=== PATIENT | male | born 1955 | race Two or more races ===

== ENCOUNTER 2018-01-20 05:51 | Inpatient (IN) | payer OTHER ==
[~2018-01-20] VITALS: Ht 185.4 cm; Wt 100.9 kg
[2018-01-20] VITALS (9 sets, daily range): BP systolic 151–175; BP diastolic 78–95
[~2018-01-20 05:51] MED LIST: ANTIFUNGAL CREAM TOPIC; MELATONIN5 M5 ORAL; MOVE FREE JOIN1 EACH PO; MULTIVITAMINS1 EAC2 ORAL; VYTORIN 10-401 EACH ORAL; [UNRECOGNIZED DRUG - OTHER] PO
[2018-01-20] MEDS ORDERED: Bupivacaine 0.5% Inj 30 ml vial INJ ONE ×2 (06:49→09:12)
[2018-01-20] MEDS ORDERED: Thrombin 5000 units spray kit TOPIC ONE ×5 (06:50→12:24)
[2018-01-20] MEDS ORDERED: Vancomycin 1gm inj IVPB ONE ×2 (06:50→12:25)
[2018-01-20] MEDS ORDERED: Gelfoam Size TOPIC ONE (06:51)
[2018-01-20] MEDS ORDERED: Bacitracin 50000 Units Vial ONE (06:51)
[2018-01-20] MEDS ORDERED: Thrombin 5000 units TOPIC ONE ×3 (06:51→09:12)
[2018-01-20] MEDS ORDERED: ceFAZolin sod 2 GM in D5W 110 ML IVPB ONE (07:00)
[2018-01-20] MEDS ORDERED: Midazolam 2mg/2ml Inj ONE (07:06)
[2018-01-20] MEDS ORDERED: fentaNYL 100 mcg/2 mL IV ONE ×2 (07:06→12:33)
[2018-01-20] MEDS ORDERED: Propofol 200mg/20ml IV ONE (07:07)
[2018-01-20] MEDS ORDERED: Sodium Chloride 10ml vial INJ ONE (07:07)
[2018-01-20] MEDS ORDERED: Lidocaine 1% MPF 10mg/ml 5ml ONE (07:07)
[2018-01-20] MEDS ORDERED: Zemuron 50mg/5ml Inj IV ONE (07:31)
[2018-01-20] MEDS ORDERED: Gelfoam Absorbable 1gm powder pkt TOPIC ONE ×5 (07:50→12:24)
[2018-01-20] MEDS ORDERED: Sterile Water Irrig 1000ml IRRIG ONE (08:00)
[2018-01-20] MEDS ORDERED: NS Irrig 1000ml ONE (08:00)
[2018-01-20] MEDS ORDERED: LR 1000ml ONE (08:00)
[2018-01-20] MEDS ORDERED: Bacitracin 50000 Units Vial IRRIG ONE ×2 (08:05→09:12)
[2018-01-20] MEDS ORDERED: LR 1000ml 1,000 ML IVLG SCH (08:05)
--- NOTE | 2018-01-20 08:12 | Anethesia Preoperative Eval ---
Anesthesia Pre-op PMH/ROS General Date of Evaluation: Jan 20, 2018 Time of Evaluation: 07:25 Anesthesiologist: Lashanda ASA Score: ASA 2 Mallampati Score Class I : Soft palate, uvula, fauces, pillars visible Class II: Soft palate, uvula, fauces visible Class III: Soft palate, base of uvula visible Class IV: Only hard plate visible Mallampati Classification: Class II Surgeon: Rere Diagnosis: Disc degeneration Surgical Procedure: Lumbar decompression Family History: no anesthesia problems Allergies: Coded Allergies: No Known Allergies (Unverified , 01/20/14) Medications: see eMAR Past Medical History Cardiovascular: Denies: HTN, CAD, [place], valve dz, arrhythmia, other Pulmonary: Reports: BRIAN; Denies: asthma, COPD, other Gastrointestinal/Genitourinary: Denies: GERD, CRI, ESRD, other Neurologic/Psychiatric: Denies: dementia, CVA, depression/anxiety, TIA, other Endocrine: Denies: DM, hypothyroidism, steroids, other Other: obesity PMH Narrative: BRIAN, moderate obesity PSxH Narrative: Cervical fusion Anesthesia Pre-op Phys. Exam Physician Exam Last Vital Signs Date Time Temp Pulse Resp B/P (MAP) Pulse Ox O2 Delivery O2 Flow Rate FiO2 01/20/18 06:51 Room Air 01/20/18 06:38 98.2 79 18 175/95 (121) 97 98.2 Constitutional: NAD Neurologic: CN 2-12 intact Cardiovascular: RRR, no M/R/G Respiratory: CTA Gastrointestinal: S/NT/ND Airway Exam Mallampati Score: Class II MO: full ROM: full Teeth: intact Anesthesia Pre-op A/P Labs WNL Studies Pre-op Studies: EKG - NSR, CXR - NAD Risk Assessment & Plan Assessment: 62 yo male with h/o BRIAN and moderate obesity here for lumbar multilevel decompression Plan: GETA, SedLine Status Change Before Surgery: No Pre-Antibiotics Drug: Ancef Given Within 1 Hr of Incision: Yes Time Given: 08:45 Leonidas Pyle MD Jan 20, 2018 08:12
--- NOTE | 2018-01-20 08:13 | Immediate Post-Op Evaluation ---
Leonidas Pyle MD 01/20/18 0813: Galindo Marcos MD 01/20/18 1305: Immediate Post-Op Evalulation Immediate Post-Op Evalulation Procedure: Lumbar Decompression Date of Evaluation: Jan 20, 2018 Time of Evaluation: 13:14 IV Fluids: 2000 LR Blood Products: 0 Estimated Blood Loss: 400 Urinary Output: 200 Blood Pressure Systolic: 157 Blood Pressure Diastolic: 86 Pulse Rate: 67 Respiratory Rate: 16 O2 Sat by Pulse Oximetry: 99 Temperature (Fahrenheit): 97.9 Pain Score (1-10): 3 Nausea: No Vomiting: No Complications 0 Patient Status: awake, reacts, patent, extubated, none Hydration Status: adequate Dru Grams Ancef IV Given Within 1 Hr of Incision: Yes Time Given: 09:21 Leonidas Pyle MD Jan 20, 2018 08:13 Galindo Marcos MD Jan 20, 2018 13:05
[2018-01-20] MEDS ORDERED: Hydromorphone 0.5mg/0.5ml inj IVP PRN (08:15)
[2018-01-20] MEDS ORDERED: DiphenhydrAMINE 50mg/ml Inj IVP PRN (08:15)
[2018-01-20] MEDS ORDERED: LORazepam Inj 2mg/ml 1ml IV PRN (08:15)
[2018-01-20] MEDS ORDERED: Meperidine 50mg/ml Inj(FOR RIGORS ONLY) IM PRN (08:15)
--- NOTE | 2018-01-20 08:39 | Pre-Procedure Note/Attestation ---
Pre-Procedure Note/Attestation Complete Prior to Procedure Procedure Narrative: L3-S1 laminectomy/foraminotomy Indications for Procedure Pre-Operative Diagnosis: L3-S1 Stenosis with radiculopathy Attestation I attest that I discussed the nature of the procedure; its benefits; risks and complications; and alternatives (and the risks and benefits of such alternatives ), prior to the procedure, with the patient (or the patient's legal mortician supplies sales representative). I attest that, if there was a reasonable possibility of needing a blood transfusion, the patient (or the patient's legal mortician supplies sales representative) was given the [facility] standardized written summary, pursuant to the Leonidas Ana Blood Safety Act ([place] Health and Safety Code # 1645, as amended). I attest that I re-evaluated the patient just prior to the surgery and that there has been no change in the patient's H&P, except as documented below: Andre Jernigan MD Jan 20, 2018 08:39
[2018-01-20] MEDS ORDERED: ePHEDrine 50mg/ml Inj ONE (09:23)
[2018-01-20] MEDS ORDERED: Acetaminophen (Non formulary) 100 ML IV ONE (12:15)
[2018-01-20] MEDS ORDERED: Milk of Magnesia 30ml Ud ORAL PRN (12:45)
--- NOTE | 2018-01-20 12:50 | Brief Operative Note ---
Immediate Post Operative Note Operative Note Pre-op Diagnosis: L3-S1 Stenosis with radiculopathy Procedure: l3-s1 laminectomy, r l45 neurolysis and resection of cyst Post-op Diagnosis: same as pre-op Findings: consistent w/pre-op dx studies Surgeon: milagro Anesthesiologist: jesús Anesthesia: general Specimen: none Complications: none Condition: stable Fluids: 2L Estimated Blood Loss: volume - 400 Drains: hemovac Implant(s) used?: No Andre Jernigan MD Jan 20, 2018 12:50
[2018-01-20] MEDS ORDERED: D5 1/2NS 1,000 ML IV SCH (13:00)
[2018-01-20] MEDS ORDERED: Metoclopramide 10mg/2ml Inj IVP PRN ×2 (14:23→16:52)
--- NOTE | 2018-01-20 14:34 | Diagnostic Imaging Report ---
Indication: Right lower extremity greater than left lower extremity pain, intraoperative imaging Technique: Intraoperative images Comparison: none Findings: Initial image demonstrates surgical tool projected posterior to what is presumably the L4 vertebral body, and a second projected posterior to what is presumably the L5-S1 disc. Impression: Intraoperative imaging, as described
--- NOTE | 2018-01-20 15:27 | History and Physical ---
History of Present Illness General Date patient seen: Jan 20, 2018 Present Illness HPI 62 year old male with hx of mild DM, HTN admitted with L3-S1 Stenosis with radiculopathy and underwent L 3-s1 laminectomy, r L45 neurolysis and resection of cyst. He is admitted for post operative care and pain management. Allergies: Coded Allergies: No Known Allergies (Unverified , 01/20/14) Medication History Scheduled Ezetimibe/Simvastatin 10-40MG (Vytorin 10-40 Mg Tablet), 1 TAB ORAL HS, ( Reported) Glucosam/Chond/Hyalu/Cf Borate (Move Free Joint Health Tablet), 1 EACH PO DA, ( Reported) Multivitamins* (Multivitamins*), 1 TAB ORAL DAILY, (Reported) [Antifungal Cream], 1 APPLIC TOPIC DAILY, (Reported) [Vitamin Focus Factor], 1 TAB PO DA, (Reported) Scheduled PRN Melatonin (Melatonin), 5 MG ORAL BEDTIME PRN for Insomnia, (Reported) Patient History Healthcare decision maker tadeo() Resuscitation status Full Code Advanced Directive on File No Past Medical/Surgical History Past Medical/Surgical History: (1) Diabetes mellitus (2) Hypotension Review of Systems All Other Systems: negative except mentioned in HPI Physical Exam General Appearance: WD/WN Lines, tubes and drains: peripheral HEENT: normocephalic, atraumatic Neck: non-tender, normal alignment Respiratory/Chest: chest wall non-tender, lungs clear Breasts: no masses Cardiovascular/Chest: normal peripheral pulses, normal rate Abdomen: normal bowel sounds, non tender Last 24 Hour Vital Signs Date Time Temp Pulse Resp B/P (MAP) Pulse Ox O2 Delivery O2 Flow Rate FiO2 01/20/18 14:10 97.3 76 17 161/85 (110) 100 97.3 01/20/18 13:30 83 18 157/78 100 Nasal Cannula 3 01/20/18 13:13 70 18 161/83 100 Nasal Cannula 3 01/20/18 13:08 74 18 151/85 100 Nasal Cannula 3 01/20/18 13:05 208.2 67 16 99 01/20/18 13:03 97.9 67 16 157/86 99 Nasal Cannula 3 97.9 01/20/18 06:51 Room Air 01/20/18 06:38 98.2 79 18 175/95 (121) 97 98.2 Intake and Output 01/19/18 01/20/18 19:00 07:00 # Voids 1 Height (Feet): 6 Height (Inches): 1.00 Weight (Pounds): 220 Medications Current Medications Medications (Trade) Dose Ordered Sig/Juan Manuel Route PRN Reason Start Time Stop Time Status Last Admin Dose Admin Acetaminophen (Tylenol) 650 mg Q4H PRN ORAL headache or temp>101 01/20/18 12:45 02/19/18 12:44 Cefazolin Sodium 50 ml @ 100 mls/hr Q8H IV 01/20/18 17:00 01/27/18 16:59 Dextrose/Sodium Chloride 1,000 ml @ 100 mls/hr Q10H IV 01/20/18 13:00 02/19/18 12:59 01/20/18 14:52 Diphenhydramine HCl (Benadryl) 25 mg Q15M PRN IVP Itching 01/20/18 08:15 01/20/18 16:00 Docusate Sodium (Colace) 100 mg TWICE A DAY ORAL 01/20/18 18:00 02/19/18 17:59 Hydromorphone HCl (Dilaudid) 0.5 mg Q15M PRN IVP For Pain 01/20/18 08:15 01/20/18 16:00 01/20/18 15:21 Lorazepam (Ativan 2mg/ml 1ml) 0.5 mg Q15M PRN IV For Anxiety 01/20/18 08:15 01/20/18 16:00 Magnesium Hydroxide (Mom) 30 ml QIDPRN PRN ORAL Constipation 01/20/18 12:45 02/19/18 12:44 Meperidine HCl (Demerol) 25 mg Q15M PRN IM Shivering 01/20/18 08:15 Metoclopramide HCl (Reglan) 10 mg Q6H PRN IVP Nausea & Vomiting 01/20/18 14:23 02/19/18 14:22 Temazepam (Restoril) 15 mg HSPRN PRN ORAL Insomnia 01/20/18 12:45 01/27/18 12:44 Assessment/Plan Problem List: (1) L3-S1 Stenosis with radiculopathy (2) Diabetes mellitus ICD Codes: E11.9 - Type 2 diabetes mellitus without complications SNOMED: 10660111 (3) Hypotension ICD Codes: I95.9 - Hypotension, unspecified SNOMED: 60649984 Assessment/Plan post op care sliding scale diabetic diet pain management dvt prophylaxis Michael Zimmerman MD Jan 20, 2018 15:27
[2018-01-20] MEDS ORDERED: Hydromorphone 0.5mg/0.5ml inj IVP SCH (16:55)
[2018-01-20] MEDS ORDERED: HYDROcodone/Acetamin 10/325 tab ORAL PRN (17:00)
[2018-01-20] MEDS: ceFAZolin 1gm/50ml Premix 50 ML IV SCH (17:14)
[2018-01-20] MEDS: Docusate 100mg cap ORAL SCH (17:36)
[2018-01-20] MEDS: Hydromorphone 0.5mg/0.5ml inj IVP PRN ×2 (19:02→21:22)
[2018-01-20] MEDS ORDERED: Tamsulosin 0.4mg cap ORAL SCH (21:00)
[2018-01-20] MEDS ORDERED: Chloraseptic Spray 20mL Bottle ORAL PRN (21:00)
[2018-01-20] MEDS ORDERED: Cyclobenzaprine 10mg Tab ORAL PRN (21:00)
[2018-01-20] MEDS ORDERED: oxyCODONE 5mg IR tab ORAL PRN (21:00)
[2018-01-21] VITALS: BP 141/78
[2018-01-21] MEDS ORDERED: oxyCODONE 5mg IR tab ORAL PRN
[2018-01-21] MEDS: ceFAZolin 1gm/50ml Premix 50 ML IV SCH ×3 (00:08→18:31)
[2018-01-21] MEDS: Hydromorphone 0.5mg/0.5ml inj IVP PRN (00:10)
--- NOTE | 2018-01-21 01:01 | Consultation ---
DATE OF CONSULTATION: 01/20/2018 CONSULTING PHYSICIAN: Jones Orellana M.D. REFERRING PHYSICIAN: Andre Jernigan M.D. REASON FOR CONSULTATION: Acute pain consult. HISTORY: Dear Dr. Andre Jernigan, Thank you kindly for consulting me to evaluate and render an opinion as to how to proceed in the management of the patient's acute postoperative lumbar spine pain after multiple level lumbar spine decompressive surgery today. The patient is a 62-year-old gentleman with a long history of work-related injury. He underwent cervical spine surgery 4 years ago and today, he underwent multiple level lumbar spine decompressive surgery by Dr. Andre Jernigan. The patient has a long history of injury and spine pain. He complained of severe discomfort after today's multiple level lumbar spine surgery, and you consulted me to help with his pain control. I saw the patient at the bedside with his . I discussed the case with the pharmacist, PharmDEleuterio. I saw the patient with his and nurse RN, Mindy. I discussed the case with the recovery room nurse and the charge nurse, Karolina VOGEL. I spent over 75 minutes in consultation with an additional 30 minutes in medical record review. I reviewed multiple records from the patient's medical chart including surgical authorization and utilization review by [facility] [employer] for the insurance carrier, [facility] dated 12/04/2017 authorizing multi-level lumbar spine surgery as certified along with hospitalization. Further record review include preoperative history and physical by Dr. Krishan Roa dated 01/05/2018 along with diagnostic testing, laboratory studies, a 12-lead EKG, and chest x-ray. Further record review include multiple records from today's date of surgery at [facility], dated 01/20/2018 including consent for surgical treatment, consent for anesthesia, consent for blood products, medication administration record, medication reconciliation order form, PACU record, PACU orders, anesthesia record, pre and post anesthesia evaluation record, postoperative spine surgical orders, and postoperative surgery report by Dr. Jernigan, initial nursing assessment, 24-hour medical/surgical flow sheet, graphic chart record, guidelines for antibiotics, guidelines for DVT prophylaxis, initial nursing assessment, and 24-hour medical/surgical flow sheet. PAST MEDICAL HISTORY: 1. Acute postoperative lumbar spine pain, status post multiple level lumbar spine surgery by Dr. Andre Jernigan in January 2018. 2. Work-related injury. 3. Mild obesity. 4. Chronic spine pain. 5. Hypercholesterolemia. 6. Insomnia. 7. Diet-controlled diabetes. PAST SURGICAL HISTORY: Left cervical spine fusion surgery in 2014, tonsillectomy 50 years ago, and cervical and lumbar epidural steroid injections. MEDICATIONS AT HOME: Zetia, melatonin, multivitamins, and [id number] pain medications. ALLERGIES: No known drug allergies. SOCIAL HISTORY: The patient is accompanied at the bedside by his . He denies tobacco, marijuana, or significant alcohol usage. FAMILY HISTORY: Hypertension, coronary artery disease, and diabetes. REVIEW OF SYSTEMS: Per attending physician. PHYSICAL EXAMINATION: GENERAL: Age 62, height 6 feet 0 inches, weight 102 kg, and body mass index 30. VITAL SIGNS: Afebrile, pulse 77, respirations 18, blood pressure 155/83, and pulse oximetry 99%. HEENT: Normocephalic and atraumatic. ABDOMEN: Mildly obese. Camara catheter in place. EXTREMITIES: Moving all extremities x4. A 5/5 dorsiflexion and 5/5 plantar flexion in bilateral lower extremities. GENITOURINARY: Deferred. Hemovac drain holding suction. Significant pain with log rolling. Straight leg raising deferred secondary to severe pain. NEUROLOGIC: The patient appears non-toxic. He is alert and oriented x3. Per Dr. Jernigan. DIAGNOSTIC TESTING: Preoperatively from 01/05/2018 shows INR 1.1, PTT 33, glucose 228, sodium 136, potassium 4.0, chloride 104, bicarb 24, BUN 16, creatinine 0.8, and calcium 9.6. Total protein 6.9. Albumin 4.5. AST 22 and ALT 39. Total bilirubin is 0.4. White count 8, hematocrit 43, and platelets 192,000. Sedimentation rate 11. Glycosylated hemoglobin high normal at 6.7. Urine toxicology screen negative. A 12-lead EKG shows normal sinus rhythm, ventricular rate 73. No evidence for acute cardiac ischemia. Preoperative chest x-ray shows no acute cardiopulmonary disease dated 01/05/2018. IMPRESSION: 1. Acute postoperative lumbar spine pain, status post multiple level lumbar spine surgery by Dr. Andre Jernigan in January 2018. 2. Work-related injury. 3. Mild obesity. 4. Chronic spine pain. 5. Hypercholesterolemia. 6. Insomnia. 7. Diet-controlled diabetes. TREATMENT RECOMMENDATIONS: The patient has had a work-related injury for nearly 2 decades. He did undergo cervical spine fusion surgery 4 years ago and also has had epidural injections. The patient states that oxycodone has been well tolerated in the past. I have instituted a dose of oxycodone 10 mg instant release every three hours p.r.n. for mild pain. The patient does admit that he has a rather sensitive stomach, so we will hold off on using the oxycodone until he advances his diet. He has tolerated liquids and is hungry. He denies nausea symptoms. I will advance the diet slowly due to his statements that he has a sensitive stomach. Because the patient also states that he is a diet-controlled diabetic at home, we will remove the dextrose from his IV fluids and also adjust his diet to no concentrated sweets and eventually to 1800 ADA diet as tolerated. Multiple antiemetics have been ordered including Zofran as a 4 mg intravenous q.4 hours dose as a first-line agent. The patient does state that in the past, Flexeril has been well tolerated and I have ordered Flexeril 10 mg orally every 8 hours p.r.n. for muscle spasms. I have set up two different doses of Dilaudid starting with an intravenous dose of 0.5 mg p.r.n. for moderate pain, followed by a double dose of 1 mg subcutaneously every three hours p.r.n. for more severe breakthrough pain. The patient is complaining of sore throat and I have asked the nurse to place Chloraseptic spray at the bedside to help with his complaints. I will empirically place the patient on Protonix 40 mg nightly starting tonight for GI ulcer prophylaxis. I have also added a p.r.n. dose of Mylanta 30 mL q.6 hours in case of any GERD symptom exacerbation. I have ordered Benadryl 20 mg q.6 hours in case of any itching complaints. The patient has been placed on Colace b.i.d. as a stool softener to promote bowel regularity. I have also ordered p.r.n. dose of milk of magnesia as a rescue laxative. The patient does appear to have borderline hypertension although he does not take any antihypertensive medications at home. I will add a p.r.n. dose of clonidine 0.1 mg in case of any systolic blood pressure readings greater than 160 mmHg. I will defer further management to Dr. Jernigan and the hospitalist. I have ordered a dose of Flomax 0.4 mg nightly to reduce the risk for urinary retention issues. Incentive spirometer has been ordered to encourage good pulmonary toilet. I will defer DVT prophylaxis to the surgeon, Dr. Jernigan. Jones Orellana M.D. DR: ABRAHAM JOB#: [id number] CC:
--- NOTE | 2018-01-21 02:46 | Operative Note - Dictated ---
DATE OF OPERATION: 01/20/2018 SURGEON: Andre Jernigan M.D. VISUALLY IMPAIRED TEACHER: None. ANESTHESIA: General endotracheal anesthesia. ANESTHESIOLOGIST: Dr. Pyle and Dr. Marcos. PREOPERATIVE DIAGNOSIS: Spinal stenosis, bilateral L3-L4, L4-L5, and L5-S1 along the lateral recesses, neuroforamen and centrally. OPERATION PERFORMED: 1. Complete laminectomy of L4. 2. Inferior two-thirds laminectomy, bilateral L3. 3. Neural foraminotomies, bilateral L3-L4, L4-L5 and L5-S1. 4. Hemilaminectomy bilateral L5. 5. Removal of synovial cyst and neurolysis, right side L4-L5. 6. Neurodiagnostic monitoring. 7. Use of operating microscope. 8. Use of fluoroscopy for localization purposes. ESTIMATED BLOOD LOSS: 500 mL. FLUIDS: 2 liters. COMPLICATIONS: None. FINDINGS: 1. Severe foraminal stenosis bilaterally at L3-L4, L4-L5 and L5-S1 2. Severe scarring requiring neurolysis and removal of chronic inflammatory tissues/synovial cyst right side, L4-L5. RISK NOTE: The patient was explained in detail risks and benefits of surgery to include, but not be limited to those of bleeding; infection; damage to nerves, vessels, tendons; anesthetic risk; allergic reaction; aspiration and possibly . The patient understood and wished to proceed. INDICATIONS: The patient is a very pleasant gentleman, 62-year-old, fairly severe radiculopathic pain in lower extremities, primarily on the right, but also the left spinal stenosis was identified. He had failed epidural injection and other conservative care. He decided to proceed with surgical intervention. OPERATIVE PROCEDURE IN DETAIL: The patient was taken to the operative suite. After general endotracheal anesthesia was obtained. Camara catheter was placed. He was turned prone onto a radiolucent table. The back was prepped and draped in usual sterile fashion. The fluoroscope was brought in place and the L3 level through L5 level was identified. Incision was carried out from L2 through S1. The procedure was complicated due to the patient's obesity. At this point, subperiosteal dissection was carried out bilaterally at L4-L5, L3-L4 and L5-S1. Extensive scarring was encountered from the chronic arthritic changes and spondylosis. At this point, the Fuentes bone cutter was used to perform a complete spinous process resection of L4 and the inferior two-thirds of L3. The spinous process of L5 was left in tract. High-speed drill was then used to thin out the lamina of L3 and L4 bilaterally. A curved curette and Kerrison punches were used to complete a thorough laminectomy. Ligamentum flavum was removed in a piecemeal fashion. Care was taken to avoid injury to the dural sac. The neural foramen were then approached under microscopic visualization and a combination of curettes, Kerrison punches and osteotome, a medial facetectomy was performed bilaterally at L3-L4 and L4-L5. Once the neural foraminotomies were completed at these levels, copious irrigation was performed. Under microscopic visualization, there was noted to be much scarring and adhesions at the L4-L5 level and under microscopic visualization, a chronic facet cyst was identified. Meticulous neurolysis was required to mobilize the nerve sac. Once completed with this and foraminotomies were completed, attention was then turned to the L5-S1 level on the right side. High-speed drill was used to perform inferior pole laminectomy of L5 as well as generous medial facetectomy. Curved curettes and Kerrison punches completed the laminal foraminotomy. This procedure was then identically reproduced on the left side at L5-S1. Copious irrigation was performed. Once satisfied with the decompression, FloSeal was applied to all bony edges. Meticulous hemostasis was achieved due to the extensive nature of the procedure. Medium-sized Hemovac drain was placed deep to the fascia. Vancomycin powder was then also applied to the muscle. The fascia was then repaired using #1 Vicryl. Subcutaneous closure using 2-0 Vicryl. Dermabond and sterile dressing was applied. The patient was then turned onto his back, awakened, extubated and transferred to recovery room in stable condition. Sponge and needle counts were correct. Andre Jernigan M.D. DR: ISIDRA JOB#: [id number] CC:
[2018-01-21 04:00] VITALS: BP 146/77
[2018-01-21] MEDS: HYDROmorphone 1mg/ml Carpuject SUBQ PRN ×3 (05:19→23:07)
--- NOTE | 2018-01-21 06:31 | 48 Hour Post Anesthesia Eval ---
Post Anesthesia Evaluation Procedure: Lumbar Decompression Date of Evaluation: Jan 21, 2018 Time of Evaluation: 06:00 Blood Pressure Systolic: 146 0: 77 Pulse Rate: 79 Respiratory Rate: 18 Temperature (Fahrenheit): 98.2 O2 Sat by Pulse Oximetry: 99 Airway: patent Nausea: No Vomiting: No Pain Intensity: 0 Hydration Status: adequate Cardiopulmonary Status: at baseline Mental Status/LOC: patient returned to baseline Post-Anesthesia Complications: 0 Follow-up care needed: N/A - further care as per primary team Tg De La Torre MD Jan 21, 2018 06:31
[2018-01-21 08:00] VITALS: BP 161/89
[2018-01-21] MEDS: Docusate 100mg cap ORAL SCH ×2 (08:10→18:30)
--- NOTE | 2018-01-21 08:56 | Orthopedic Spine Progress Note ---
Ortho Spine - Progress Note Subjective Symptoms: c/o post-op back pain, improved Objective Vital Signs: Last 24 Hour Vital Signs Date Time Temp Pulse Resp B/P (MAP) Pulse Ox O2 Delivery O2 Flow Rate FiO2 01/21/18 08:11 161/89 01/21/18 08:00 98.6 93 18 161/89 (113) 94 98.6 01/21/18 06:31 208.8 79 18 99 01/21/18 04:00 98.2 79 18 146/77 (100) 99 98.2 01/21/18 00:00 98.2 79 18 141/78 (99) 99 98.2 01/20/18 21:00 Room Air Room Air 01/20/18 20:00 97.5 76 19 158/82 (107) 99 97.5 01/20/18 16:00 97.4 77 18 155/83 (107) 99 97.4 01/20/18 15:10 97.4 76 18 159/84 (109) 98 97.4 01/20/18 14:10 97.3 76 17 161/85 (110) 100 97.3 01/20/18 13:30 83 18 157/78 100 Nasal Cannula 3 01/20/18 13:13 70 18 161/83 100 Nasal Cannula 3 01/20/18 13:08 74 18 151/85 100 Nasal Cannula 3 01/20/18 13:05 208.2 67 16 99 01/20/18 13:03 97.9 67 16 157/86 99 Nasal Cannula 3 97.9 I&O: Intake and Output 01/20/18 01/21/18 19:00 07:00 Intake Total 2590 ml 1140 ml Output Total 1200 ml 2715 ml Balance 1390 ml -1575 ml Intake Oral 240 ml 240 ml IV Total 2350 ml 900 ml Output Urine Total 650 ml 2525 ml Drainage Total 150 ml 190 ml Estimated Blood Loss 400 ml Wound: clean, intact Drains: hemovac Neuro Status: unchanged from pre-op Assessment Procedure Performed: l3-s1 laminectomy, r l45 neurolysis and resection of cyst Plan Plan: PT, pain management, continue drain Andre Jernigan MD Jan 21, 2018 08:56
[2018-01-21 12:00] VITALS: BP 140/73
[2018-01-21] MEDS ORDERED: HYDROmorphone 1mg/ml Carpuject SUBQ SCH (14:18)
[2018-01-21 16:00] VITALS: BP 133/72
[2018-01-21] MEDS ORDERED: oxyCODONE 5mg IR tab ORAL SCH (17:00)
--- NOTE | 2018-01-21 17:01 | Pulmonology Progress Note ---
Assessment/Plan Problems: (1) L3-S1 Stenosis with radiculopathy (2) Diabetes mellitus (3) Hypotension Assessment/Plan improving pain is controlled eating well Subjective ROS Limited/Unobtainable: No Constitutional: Reports: no symptoms HEENT: Repors: no symptoms Respiratory: Reports: no symptoms Cardiovascular: Reports: no symptoms Allergies: Coded Allergies: No Known Allergies (Unverified , 01/20/14) Objective Last 24 Hour Vital Signs Date Time Temp Pulse Resp B/P (MAP) Pulse Ox O2 Delivery O2 Flow Rate FiO2 01/21/18 16:00 98.1 92 20 133/72 (92) 97 98.1 01/21/18 12:00 98.5 73 20 140/73 (95) 96 98.5 01/21/18 08:45 Room Air Room Air 01/21/18 08:11 161/89 01/21/18 08:00 98.6 93 18 161/89 (113) 94 98.6 01/21/18 06:31 208.8 79 18 99 01/21/18 04:00 98.2 79 18 146/77 (100) 99 98.2 01/21/18 00:00 98.2 79 18 141/78 (99) 99 98.2 01/20/18 21:00 Room Air Room Air 01/20/18 20:00 97.5 76 19 158/82 (107) 99 97.5 Intake and Output 01/20/18 01/21/18 19:00 07:00 Intake Total 2590 ml 1140 ml Output Total 1200 ml 2715 ml Balance 1390 ml -1575 ml Intake Oral 240 ml 240 ml IV Total 2350 ml 900 ml Output Urine Total 650 ml 2525 ml Drainage Total 150 ml 190 ml Estimated Blood Loss 400 ml General Appearance: WD/WN HEENT: normocephalic, anicteric Respiratory/Chest: chest wall non-tender, normal breath sounds Cardiovascular: regular rhythm, no JVD Abdomen: soft, non tender, no organomegaly Current Medications Medications (Trade) Dose Ordered Sig/Juan Manuel Route PRN Reason Start Time Stop Time Status Last Admin Dose Admin Acetaminophen (Tylenol) 650 mg Q4H PRN ORAL headache or temp>101 01/20/18 12:45 02/19/18 12:44 Al Hydroxide/Mg Hydroxide (Mylanta) 30 ml Q6H PRN ORAL GERD 01/20/18 21:00 02/19/18 20:59 Cefazolin Sodium 50 ml @ 100 mls/hr Q8H IV 01/20/18 17:00 01/27/18 16:59 01/21/18 09:29 Clonidine HCl (Catapres Tab) 0.1 mg Q8H PRN ORAL For High Blood Pressure 01/20/18 21:15 02/19/18 21:14 01/21/18 08:11 Cyclobenzaprine HCl (Flexeril) 10 mg Q8H PRN ORAL Muscle Spasm 01/20/18 21:00 02/19/18 20:59 Diphenhydramine HCl (Benadryl) 25 mg Q6H PRN ORAL Itching 01/20/18 21:00 02/19/18 20:59 Docusate Sodium (Colace) 100 mg TWICE A DAY ORAL 01/20/18 18:00 02/19/18 17:59 01/21/18 08:10 Hydromorphone HCl (Dilaudid) 0.5 mg Q2H PRN IVP MODERATE PAIN 01/20/18 16:54 01/27/18 16:53 01/21/18 00:10 Hydromorphone HCl (Dilaudid) 1 mg Q3H PRN SUBQ Severe Breakthru Pain (>7) 01/21/18 15:00 01/28/18 14:59 Magnesium Hydroxide (Mom) 30 ml QIDPRN PRN ORAL Constipation 01/20/18 12:45 02/19/18 12:44 Ondansetron HCl (Zofran) 4 mg Q4H PRN IV Nausea & Vomiting 01/20/18 17:00 02/19/18 16:59 Oxycodone HCl (Roxicodone) 10 mg ONCE ORAL 01/21/18 17:00 01/21/18 18:00 Oxycodone HCl (Roxicodone) 10 mg Q3H PRN ORAL Mild Pain (Pain Scale 1-3) 01/21/18 00:00 01/28/18 00:00 Pantoprazole (Protonix) 40 mg QHS ORAL 01/20/18 21:11 02/19/18 21:10 01/20/18 21:20 Phenol/Menthol (Chloraseptic) 1 spray Q3H PRN ORAL SORE THROAT 01/20/18 21:00 02/19/18 20:59 Temazepam (Restoril) 15 mg HSPRN PRN ORAL Insomnia 01/20/18 12:45 01/27/18 12:44 Michael Zimmerman MD Jan 21, 2018 17:01
--- NOTE | 2018-01-21 19:30 | Progress Note ---
DATE: 01/21/2018 ACUTE PAIN MANAGEMENT PHYSICIAN PROGRESS NOTE MEDICATIONS: Medication administration record reviewed. Medications include IV fluids, Colace, Flomax, Ancef, Protonix. P.r.n. medications include Restoril, milk of magnesia, Zofran, Dilaudid, Flexeril, Mylanta, Benadryl, Chloraseptic spray, oxycodone, and clonidine. LABORATORY STUDIES: No interval laboratory studies. VITAL SIGNS: Afebrile, pulse 73, respirations 20, blood pressure 140/73, oxygen saturation 96%. I saw the patient at the bedside with his . I discussed the case with the nurse, LELA Betts, and the surgeon, Dr. Jernigan. The patient did ambulate with physical therapy. He has been using breakthrough doses of Dilaudid and I have asked the nurse to give him a Percocet/oxycodone tablet with his dinner tonight to test for tolerability and efficacy. We will continue these Dilaudid injections as he advances his physical therapy training. I have an incentive spirometer arranged at the bedside and I encouraged aggressive usage. The patient has been advancing his diet slowly with a sensitive stomach. Liquids are well tolerated and I would continue the IV fluids for relative intravascular rehydration. There have been no orthostatic hypotension episodes thankfully. The Camara catheter was removed and he has been voiding urine without difficulties. I therefore will stop the Flomax since he does not take this medication normally at home, in order to simplify his analgesic regimen. I will continue the Protonix for GI ulcer prophylaxis. The patient's indwelling lumbar spine drain put out 100 mL overnight. We will continue the drain in-place for now and see how the output decreases over the next 24 hours. Jones Orellana M.D. DR: Shelbie JOB#: [id number] CC:
[2018-01-21 20:00] VITALS: BP 153/75
[2018-01-22 00:04] VITALS: BP 154/87
[2018-01-22] MEDS: ceFAZolin 1gm/50ml Premix 50 ML IV SCH ×2 (00:31→10:37)
[2018-01-22 04:39] VITALS: BP 156/96
[2018-01-22] MEDS: HYDROmorphone 1mg/ml Carpuject SUBQ PRN ×2 (05:37→08:49)
[2018-01-22] MEDS ORDERED: oxyCODONE 5mg IR tab ORAL SCH (06:09)
--- NOTE | 2018-01-22 07:00 | Progress Note ---
DATE: 01/22/2018 ACUTE PAIN MANAGEMENT PHYSICIAN PROGRESS NOTE MEDICATIONS: Medication administration record reviewed. Medications include Restoril, Chloraseptic, Protonix, oxycodone, Zofran, milk of magnesia, Dilaudid, Colace, Benadryl, Flexeril, Catapres, Mylanta, and Tylenol. LABORATORY STUDIES: No interval laboratory studies. OBJECTIVE: VITAL SIGNS: T-max 100.4, current temperature afebrile at 98.4, pulse 90, respirations 17, oxygen saturation 94%, and blood pressure 156/96. I saw the patient at bedside with the nurse RNBen and the charge nurse, RNGreg. I discussed the case with the surgeon, Dr. Jernigan. 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 The patient did ambulate greater than 200 feet with physical therapy. However, the patient does still have significant difficulty moving in and out of bed. The patient states that he has lots of stairs at home, so I encouraged the patient to ask the physical therapist with assistance for stairs training as physical therapy sessions continue. DME equipment has been provided at the bedside. The patient does complain a bit of sore throat. The Chloraseptic sprays in place at the bedside for topical relief. The patient has been only mildly compliant with the incentive spirometer. I did encourage much more aggressive use of incentive spirometer to avoid postoperative atelectasis. The patient continues to use the breakthrough Dilaudid injections along with p.r.n. Flexeril. I do encourage oxycodone as well. I will leave a prescription for oxycodone and Flexeril for outpatient usage. With the nurse Ben VOGEL at the bedside, the patient was turned to the right lateral decubitus position so I could examine the lumbar spine dressing. The dressing was removed showing the incision line clean and dry with DuraBond Sealant intact. I removed the Steri-Strips holding in the indwelling lumbar spine drain catheter. Then, at end-expiration, with the Hemovac drain taken off of suction, I personally removed the indwelling lumbar spine drain catheter. The tip was intact. Alcohol swabbing was applied generously to the drain hole site and the incision line followed by application of sterile 4 x 4 gauze and island border gauze dressings. There were no complications. Jones Orellana M.D. DR: KELSI JOB#: [id number] CC:
[2018-01-22 08:00] VITALS: BP 131/66
[2018-01-22] MEDS: Docusate 100mg cap ORAL SCH ×2 (08:49→17:39)
--- NOTE | 2018-01-22 08:50 | Orthopedic Spine Progress Note ---
Ortho Spine - Progress Note Subjective Symptoms: c/o post-op back pain, improved - as compared to pre-op Objective Vital Signs: Last 24 Hour Vital Signs Date Time Temp Pulse Resp B/P (MAP) Pulse Ox O2 Delivery O2 Flow Rate FiO2 01/22/18 08:00 98.6 92 20 131/66 (87) 98 98.6 01/22/18 04:39 98.4 90 17 156/96 (116) 94 98.4 01/22/18 00:04 100.4 87 19 154/87 (109) 96 100.4 01/21/18 21:00 Room Air Room Air 01/21/18 20:00 99.1 85 18 153/75 (101) 96 99.1 01/21/18 16:00 98.1 92 20 133/72 (92) 97 98.1 01/21/18 12:00 98.5 73 20 140/73 (95) 96 98.5 I&O: Intake and Output 01/21/18 01/22/18 19:00 07:00 Intake Total 755 ml 560 ml Output Total 1450 ml 580 ml Balance -695 ml -20 ml Intake Oral 705 ml 460 ml IV Total 50 ml 100 ml Output Urine Total 1400 ml 500 ml Drainage Total 50 ml 80 ml # Voids 5 2 Wound: clean Drains: none Neuro Status: stable Assessment Procedure Performed: l3-s1 laminectomy, r l45 neurolysis and resection of cyst Plan Plan: PT, pain management, discharge plan - possibly in Andre Cross MD Jan 22, 2018 08:50
[2018-01-22] MEDS: oxyCODONE 5mg IR tab ORAL PRN ×5 (10:38→23:57)
[2018-01-22 11:59] VITALS: BP 145/84
--- NOTE | 2018-01-22 14:32 | Pulmonology Progress Note ---
Assessment/Plan Problems: (1) L3-S1 Stenosis with radiculopathy (2) Diabetes mellitus (3) Hypotension Assessment/Plan sitting up on a chair improving pain is controlled eating well Subjective ROS Limited/Unobtainable: No Constitutional: Reports: no symptoms HEENT: Repors: no symptoms Allergies: Coded Allergies: No Known Allergies (Unverified , 01/20/14) Objective Last 24 Hour Vital Signs Date Time Temp Pulse Resp B/P (MAP) Pulse Ox O2 Delivery O2 Flow Rate FiO2 01/22/18 11:59 99.0 101 20 145/84 (104) 94 99.0 01/22/18 09:19 98.6 01/22/18 09:00 Room Air 01/22/18 08:49 98.6 01/22/18 08:00 98.6 92 20 131/66 (87) 98 98.6 01/22/18 04:39 98.4 90 17 156/96 (116) 94 98.4 01/22/18 00:04 100.4 87 19 154/87 (109) 96 100.4 01/21/18 21:00 Room Air Room Air 01/21/18 20:00 99.1 85 18 153/75 (101) 96 99.1 01/21/18 16:00 98.1 92 20 133/72 (92) 97 98.1 Intake and Output 01/21/18 01/22/18 19:00 07:00 Intake Total 755 ml 560 ml Output Total 1450 ml 580 ml Balance -695 ml -20 ml Intake Oral 705 ml 460 ml IV Total 50 ml 100 ml Output Urine Total 1400 ml 500 ml Drainage Total 50 ml 80 ml # Voids 5 2 General Appearance: WD/WN HEENT: normocephalic, atraumatic Respiratory/Chest: chest wall non-tender, lungs clear Cardiovascular: normal peripheral pulses, normal rate Abdomen: normal bowel sounds, soft, non tender Extremities: no cyanosis, no clubbing 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 Complete Current Medications Medications (Trade) Dose Ordered Sig/Juan Manuel Route PRN Reason Start Time Stop Time Status Last Admin Dose Admin Acetaminophen (Tylenol) 650 mg Q4H PRN ORAL headache or temp>101 8/14/18 12:45 02/19/18 12:44 Al Hydroxide/Mg Hydroxide (Mylanta) 30 ml Q6H PRN ORAL GERD 01/20/18 21:00 02/19/18 20:59 Cefazolin Sodium 50 ml @ 100 mls/hr Q8H IV 01/20/18 17:00 01/27/18 16:59 01/22/18 10:37 Clonidine HCl (Catapres Tab) 0.1 mg Q8H PRN ORAL For High Blood Pressure 01/20/18 21:15 02/19/18 21:14 01/21/18 08:11 Cyclobenzaprine HCl (Flexeril) 10 mg Q8H PRN ORAL Muscle Spasm 01/20/18 21:00 02/19/18 20:59 01/21/18 19:35 Diphenhydramine HCl (Benadryl) 25 mg Q6H PRN ORAL Itching 01/20/18 21:00 02/19/18 20:59 Docusate Sodium (Colace) 100 mg TWICE A DAY ORAL 01/20/18 18:00 02/19/18 17:59 01/22/18 08:49 Hydromorphone HCl (Dilaudid) 1 mg Q3H PRN SUBQ Severe Breakthru Pain (>7) 01/21/18 15:00 01/28/18 14:59 01/22/18 08:49 Magnesium Hydroxide (Mom) 30 ml QIDPRN PRN ORAL Constipation 01/20/18 12:45 02/19/18 12:44 Ondansetron HCl (Zofran) 4 mg Q4H PRN IV Nausea & Vomiting 01/20/18 17:00 02/19/18 16:59 Oxycodone HCl (Roxicodone) 10 mg Q3H PRN ORAL Mild Pain (Pain Scale 1-3) 01/22/18 09:00 01/29/18 08:59 01/22/18 13:54 Pantoprazole (Protonix) 40 mg QHS ORAL 01/20/18 21:11 02/19/18 21:10 01/21/18 20:39 Phenol/Menthol (Chloraseptic) 1 spray Q3H PRN ORAL SORE THROAT 01/20/18 21:00 02/19/18 20:59 Temazepam (Restoril) 15 mg HSPRN PRN ORAL Insomnia 01/20/18 12:45 01/27/18 12:44 Michael Zimmerman MD Jan 22, 2018 14:32
[2018-01-22 16:00] VITALS: BP 143/72
[2018-01-22 20:00] VITALS: BP 158/52
[2018-01-23 00:15] VITALS: BP 151/74
[2018-01-23] MEDS ORDERED: Magnesium Citrate Liq Btl ORAL PRN (00:45)
--- NOTE | 2018-01-23 01:00 | Progress Note ---
DATE: 01/23/2018 ACUTE PAIN MANAGEMENT PHYSICIAN PROGRESS NOTE MEDICATIONS: Medication administration record reviewed. Medications include Restoril, Chloraseptic spray, Protonix, oxycodone, Zofran, milk of magnesia, Dilaudid, Colace, Benadryl, Flexeril, Catapres, Mylanta, and Tylenol. LABORATORY STUDIES: No interval laboratory studies. OBJECTIVE: VITAL SIGNS: Afebrile, pulse 83, respirations 18, blood pressure of 143/72, and oxygen saturation 97% on room air. I saw the patient at the bedside with the nurse RN, Ben. I also saw the patient with the surgeon, Dr. Jernigan earlier in the day. The patient did quite well with physical therapy training earlier. He was trained with walking on stairs. The patient did well walking up stairs and did have some hesitations walking downstairs, but did succeed. The patient feels more comfortable and more confident with ambulation. To discharge to home later today to the care of his . I have left a prescription for Percocet and Flexeril for outpatient usage. The patient has been tolerating his pain levels primarily using the oral oxycodone 10 mg tablets without requiring the breakthrough Dilaudid injections. Flexeril was used intermittently and did benefit him with home usage as well. The patient has been using sleeping pills here, but does not appear to be overly sedated. The patient is using incentive spirometer more frequently and has been afebrile due to the good pulmonary toilet. The lumbar spine dressing appears clean and dry. I would expect Dr. Jernigan to discharge the patient to home later today with follow up in Dr. Jernigan's outpatient surgical clinic at an appropriate interval. Jones Orellana M.D. DR: ABRAHAM JOB#: [id number] CC:
[2018-01-23 04:00] VITALS: BP 114/77
[2018-01-23] MEDS: oxyCODONE 5mg IR tab ORAL PRN ×3 (05:41→12:38)
[2018-01-23 06:00] VITALS: BP 156/72
[2018-01-23 08:00] VITALS: BP 150/78
--- NOTE | 2018-01-23 08:29 | Orthopedic Spine Progress Note ---
Ortho Spine - Progress Note Objective Vital Signs: Last 24 Hour Vital Signs Date Time Temp Pulse Resp B/P (MAP) Pulse Ox O2 Delivery O2 Flow Rate FiO2 01/23/18 08:00 98.3 92 20 150/78 (102) 100 98.3 01/23/18 06:00 98.8 85 17 156/72 (100) 98 98.8 01/23/18 00:15 97.7 86 17 151/74 (99) 97 97.7 01/22/18 21:00 Room Air 01/22/18 20:00 98.5 18 158/52 (87) 95 98.5 01/22/18 16:00 98.6 83 20 143/72 (95) 97 98.6 01/22/18 11:59 99.0 101 20 145/84 (104) 94 99.0 01/22/18 09:19 98.6 01/22/18 09:00 Room Air 01/22/18 08:49 98.6 I&O: Intake and Output 01/22/18 01/23/18 19:00 07:00 Intake Total 670 ml 200 ml Output Total 1000 ml 700 ml Balance -330 ml -500 ml Intake Oral 670 ml 200 ml Output Urine Total 1000 ml 700 ml # Voids 1 Wound: clean, intact Neuro Status: unchanged from pre-op - but feels stronger and "project manager" on RLE Assessment Procedure Performed: l3-s1 laminectomy, r l45 neurolysis and resection of cyst Plan Plan: PT, pain management, discharge to home Andre Jernigan MD Jan 23, 2018 08:29
[2018-01-23] MEDS: Docusate 100mg cap ORAL SCH (08:53)
[2018-01-23] MEDS ORDERED: PERCOCET 10-321 EAC1 PO (11:51)
[2018-01-23] MEDS ORDERED: CYCLOBENZAPRINE10 MG ORAL (11:51)
[2018-01-23 12:00] VITALS: BP 146/81
[2018-01-23] MEDS ORDERED: D5 1/4NS 1000ml IV ONE (15:59)
[2018-01-23] MEDS ORDERED: Tubing IV Secondary IV ONE (15:59)
[2018-01-23] MEDS ORDERED: 1/2 NS 1000ml IV ONE (15:59)
--- NOTE | 2018-01-23 18:03 | Pulmonology Progress Note ---
Assessment/Plan Problems: (1) L3-S1 Stenosis with radiculopathy (2) Diabetes mellitus (3) Hypotension Assessment/Plan sitting up on a chair improving pain is controlled eating well dc planning Subjective ROS Limited/Unobtainable: No Constitutional: Reports: no symptoms HEENT: Repors: no symptoms Respiratory: Reports: no symptoms Cardiovascular: Reports: no symptoms Allergies: Coded Allergies: No Known Allergies (Unverified , 01/20/14) Objective Last 24 Hour Vital Signs Date Time Temp Pulse Resp B/P (MAP) Pulse Ox O2 Delivery O2 Flow Rate FiO2 01/23/18 12:00 97.8 87 20 146/81 (102) 100 97.8 01/23/18 09:00 Room Air 01/23/18 08:00 98.3 92 20 150/78 (102) 100 98.3 01/23/18 06:00 98.8 85 17 156/72 (100) 98 98.8 01/23/18 00:15 97.7 86 17 151/74 (99) 97 97.7 01/22/18 21:00 Room Air 01/22/18 20:00 98.5 18 158/52 (87) 95 98.5 Intake and Output 01/22/18 01/23/18 19:00 07:00 Intake Total 670 ml 200 ml Output Total 1000 ml 700 ml Balance -330 ml -500 ml Intake Oral 670 ml 200 ml Output Urine Total 1000 ml 700 ml # Voids 1 General Appearance: WD/WN HEENT: normocephalic, atraumatic Respiratory/Chest: chest wall non-tender, lungs clear Cardiovascular: normal peripheral pulses, normal rate Abdomen: normal bowel sounds, no organomegaly, no mass Extremities: no clubbing Skin: no rash 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
--- NOTE | 2018-01-26 10:03 | Discharge Summary ---
Discharge Summary Hospital Course Date of Admission Jan 20, 2018 at 05:51 Date of Discharge Jan 23, 2018 at 16:00 Admitting Diagnosis L3-S1 Stenosis with radiculopathy Reason for Hospitalization: elective surgery HPI Krishan Garcia is a 62 year old male who was admitted on Jan 20, 2018 at 05:51 for L3-S1 stenosis with radiculopathy Patient was admitted fro elective surgery. Consultations 1. dr Zimmerman-IM 2. dr Orellana -pain specialist Procedures s/p 01/20/[address] Jernigan 1. Complete laminectomy of L4. 2. Inferior two-thirds laminectomy, bilateral L3. 3. Neural foraminotomies, bilateral L3-L4, L4-L5 and L5-S1. 4. Hemilaminectomy bilateral L5. 5. Removal of synovial cyst and neurolysis, right side L4-L5. 6. Neurodiagnostic monitoring. 7. Use of operating microscope. 8. Use of fluoroscopy for localization purposes. Hospital Course s/p surgery course of recovery uneventful initially on IV fluids neurovascular status closely monitored Hemovac drain output closely monitored, discontinued prior to discharge pain management addressed , pain controlled, pain specialist closely followed patient was mobilized with help of physical therapy out of bed as tolerated fall precautions maintained incentive spirometry encouraged while in the bed patient slowly started on diet as tolerated antiemetics as needed voided freely,Flomax continued blood pressure was managed with clonidine on as needed basis blood sugar was closely monitored and remained stable diabetes usually controlled with diet ;diabetic diet provided bowel regimen instituted patient clinically improved: neurovascularly stable, dressing clean, dry and intact, tolerated diet , pain controlled, ambulated ,voided freely discharge instruction provided patient was stable for discharge home with outpatient follow-up with surgeon as advised by surgeon FINAL DIAGNOSES L3-S1 Stenosis with radiculopathy s/p L3-S1 laminectomy, right L45 neurolysis and resection of cyst Work-related injury. Mild obesity. Chronic spine pain. Hypercholesterolemia. Insomnia. Diabetes ( diet controlled) Discharge Medications Continued Medications: [Antifungal Cream] () 1 APPLIC TOPIC DAILY Cyclobenzaprine Hcl* (Flexeril*) 10 Mg Tablet 10 MG ORAL THREE TIMES A DAY, TAB (This prescription has been renewed) Ezetimibe/Simvastatin 10-40MG (Vytorin 10-40 Mg Tablet) 1 Each Tablet 1 TAB ORAL HS, TAB Melatonin (Melatonin) 5 Mg Tab.rapdis 5 MG ORAL BEDTIME PRN for Insomnia, TAB (This prescription has been renewed) Oxycodone HCl/Acetaminophen (Percocet 10-325 mg Tablet) 1 Each Tablet 1 EACH PO Q4HR for severe pain, TAB (This prescription has been renewed) Discharge Condition Upon Discharge: stable Discharge Disposition Patient was discharged to Home (01) Discharge Instructions Discharge Instructions Special Instructions I have been assigned to complete a D/C Summary on this account. I was not involved in the patient management Katia Poe NP Jan 26, 2018 10:03
== END 2018-01-23 16:00 | disposition home or self-care (01) | DRG 520 ==
LOC: SDSOVERFLO 05:51 → 3E 14:10
PROC: 0SB00ZZ Excision of Lumbar Vertebral Joint, Open Approach (ICD-10-PCS; 2018-01-20)
PROC: 01NB0ZZ Release Lumbar Nerve, Open Approach (ICD-10-PCS; principal; 2018-01-20 07:30)
DX: M48.061 Spinal stenosis, lumbar region without neurogenic claudication (principal); M48.07 Spinal stenosis, lumbosacral region; M54.16 Radiculopathy, lumbar region; I95.9 Hypotension, unspecified; M71.38 Other bursal cyst, other site; E66.9 Obesity, unspecified; E78.00 Pure hypercholesterolemia, unspecified; G47.00 Insomnia, unspecified; E11.9 Type 2 diabetes mellitus without complications; I10 Essential (primary) hypertension
CPT/HCPCS: 36415; 72020; 76001; 82962; 86850; 86900; 86901; 87081; 94003; 94150; J2250; J2405